=== PATIENT | male | born 1950 | race Caucasian/White ===

== ENCOUNTER 2024-12-15 14:14 | Emergency (ER) | payer MEDICARE, OTHER, SELFPAY ==
--- NOTE | 2024-12-15 14:23 | DI.CT.S_ITS ---
PROCEDURE: CT HEAD/BRAIN WO CON INDICATIONS: Fall/pain TECHNIQUE: Noncontrast 4.5 mm thick angled axial sections acquired from the foramen magnum to the vertex, with coronal and sagittal reformats. For radiation dose reduction, the following was used: automated exposure control, adjustment of mA and/or kV according to patient size. COMPARISON: None. FINDINGS: Image quality: Diagnostic. CSF spaces: Basal cisterns are patent. The ventricles are symmetric in size and shape. Brain: Hyperdensities are noted along right cerebral sulci extending to sylvian fissure and central sulcus. Hyperdensity is also seen extending to right-side of suprasellar cistern. No definite intraparenchymal hemorrhage. There is cerebral volume loss, with resultant ventricular and sulcal prominence. There are periventricular and deep white matter chronic small vessel ischemic changes. There is intracranial internal carotid artery atherosclerosis. Skull and face: Scalp swelling and edema along left frontal parietal region is seen. No acute skull fracture. Sinuses: Visualized sinuses and mastoids are clear. IMPRESSION: 1. Acute subarachnoid hemorrhage along right cerebral hemisphere as above. 2. Left scalp swelling and hematoma without acute skull fracture. 3. No acute intraparenchymal hemorrhage. No midline shift or significant mass effect. Dictated by: Brendon Young M.D. on 12/15/2024 at 15:05 Approved by: Brendon Young M.D. on 12/15/2024 at 15:11
--- NOTE | 2024-12-15 14:23 | DI.CT.S_ITS ---
PROCEDURE: CT CERVICAL SPINE WO CON INDICATIONS: Fall/pain TECHNIQUE: Noncontrast 3 mm thick sections acquired from the skull base to the T4 level. Sagittal and coronal reformats were then constructed. For radiation dose reduction, the following was used: automated exposure control, adjustment of mA and/or kV according to patient size. COMPARISON: None. FINDINGS: Image quality: Excellent. Bones: No fractures or dislocations. Loss of disc height, degenerative endplate changes and bilateral uncovertebral hypertrophic changes are noted throughout cervical spine causing mild central canal stenosis, and mild bilateral neural foraminal narrowing . Visualized superior ribs are intact. Soft tissues: Prevertebral soft tissues are normal in thickness. No paravertebral hematomas. No apical pneumothoraces. IMPRESSION: 1. No displaced fracture or traumatic subluxation. 2. Multilevel spondylitic changes throughout cervical spine. Dictated by: Brendon Young M.D. on 12/15/2024 at 15:21 Approved by: Brendon Young M.D. on 12/15/2024 at 15:22
--- NOTE | 2024-12-15 14:23 | DI.RAD.S_ITS ---
PROCEDURE: XR HAND RT MIN 3V INDICATIONS: Fall/pain TECHNIQUE: 3 views of the hand(s) acquired. COMPARISON: None. FINDINGS: Bones: No fractures or dislocations. Osteoarthritic changes are noted throughout right hand and wrist joints most notably at 1st CMC joint. Carpal bones are normally aligned. No suspicious bony lesions. Soft tissues: No suspicious soft tissue calcifications. IMPRESSION: No acute right hand fracture or dislocation. Right hand and wrist joint osteoarthritis. Dictated by: Brendon Young M.D. on 12/15/2024 at 15:04 Approved by: Brendon Young M.D. on 12/15/2024 at 15:05
--- NOTE | 2024-12-15 14:23 | DI.CT.S_ITS ---
PROCEDURE: CT PEL WO CON INDICATIONS: Fall/pain TECHNIQUE: Noncontrast 3 mm axial sections acquired through the bony pelvis, with coronal and sagittal reformatting. COMPARISON: None. FINDINGS: Image quality: Excellent. Bones: Pelvic ring is intact. No acute fracture or dislocation. Moderate bilateral hip joint osteoarthritic changes are seen. No evidence of avascular necrosis of femoral heads. No suspicious intraosseous lesions. Mild degenerative disc disease in visualized lower lumbar spine is seen. Soft tissues: There is no pelvic free fluid or free air. Bladder wall thickness is normal. Mildly enlarged prostate gland with mass effect on floor of urinary bladder. No abnormal bowel wall thickening. No free fluid or free air. No soft tissue mass or drainable fluid collection. No soft tissue or intramuscular hematoma. No abnormal soft tissue calcifications. IMPRESSION: 1. No acute pelvic fracture or dislocation. No evidence of avascular necrosis of femoral head. 2. No gross pelvic soft tissue abnormalities. Dictated by: Brendon Young M.D. on 12/15/2024 at 15:22 Approved by: Brendon Young M.D. on 12/15/2024 at 15:23
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
[2024-12-15 14:28] VITALS: BP 148/82; PULSE 16; RESP 19; TEMP 36.9; O2SAT 100
[2024-12-15 14:34] VITALS: BP 155/78; PULSE 87; RESP 16; TEMP 36.9; O2SAT 98
[2024-12-15] MEDS: TET,DIPH,PERTUSS(ACELL),VAC/PF 0.5 ML SYRINGE IM (14:46)
[2024-12-15] MEDS: ONDANSETRON 4 MG/2 ML INJ IV (15:16)
[2024-12-15] MEDS: MORPHINE 4 MG/ML INJ IV (15:16)
[2024-12-15 15:34] LABS: Add Manual Diff / Slide Review NO; Basophils Absolute Auto 0 /uL (0-100); Basophils Percent Auto 0.4 % (0-2); Eosinophils Absolute Auto 0 /uL (0-450); Eosinophils Percent Auto 0.5 % (2-4); Hematocrit 39.6 % (41-53); Hemoglobin 13.9 g/dL (13.5-17.5); Lymphocytes Absolute Auto 1200 /uL (1100-4500); Lymphocytes Percent Auto 13.1 % (25-40); Mean Corpuscular HGB Conc 35.2 % (30-36); Mean Corpuscular Hemoglobin 30.9 PG (26-34); Mean Corpuscular Volume 87.8 fL (80-100); Monocytes Absolute Auto 500 /uL (0-900); Monocytes Percent Auto 5.7 % (3-14); Neutrophils Absolute Auto 7200 /uL (1500-7000); Neutrophils Percent Auto 80.3 % (50-75); Platelet Count 224 X10^3/uL (150-400); Red Blood Cell Count 4.51 X10^6/uL (4.5-5.9); Red Cell Distribution Width 14.1 % (11.6-14.8); White Blood Cell Count 8.9 X10^3/uL (4.5-11.0)
[2024-12-15 15:44] LABS: PTT Partial Thromboplastin Tim 29 SECONDS (25.1-36.5)
[2024-12-15 15:46] LABS: Alanine Aminotransferase 27 IU/L (<50); Albumin 4.4 g/dL (3.5-5.0); Albumin Globulin Ratio 1.7 (1.0-2.8); Alkaline Phosphatase 63 U/L (38-126); Aspartate Aminotransferase 34 IU/L (17-59); BUN Creatinine Ratio 11.5 (6-22); Bilirubin Total 0.7 mg/dL (0.2-1.3); Blood Urea Nitrogen 13 mg/dL (9-20); Carbon Dioxide 18 mmol/L (22-32); Chloride 108 mmol/L (98-107); Estimated Glomerular Filt Rate > 60 mL/min (>60); Globulin 2.6 g/dL (1.7-4.1); Glucose 118 mg/dL (80-110); HEMOLYSIS 20 (0-50); Potassium 4.2 mmol/L (3.4-5.1); Sodium 137 mmol/L (137-145)
[2024-12-15 15:55] VITALS: PULSE 65; O2SAT 97
[2024-12-15 16:00] VITALS: PULSE 66; O2SAT 96
[2024-12-15 16:04] VITALS: BP 158/78; PULSE 65; O2SAT 98
[2024-12-15 16:08] LABS: INR 1.3 (0.9-1.3); Prothrombin Time 14.5 SECONDS (9.4-12.5)
== END 2024-12-15 16:15 | disposition short-term general hospital (02) ==
PROVIDERS: Emergency Provider Emergency Medicine
DX: S06.6X1A Traumatic subarachnoid hemorrhage with loss of consciousness of 30 minutes or less, initial encounter (principal); S63.601A Unspecified sprain of right thumb, initial encounter; S80.212A Abrasion, left knee, initial encounter; S70.02XA Contusion of left hip, initial encounter; V28.01XA Electric (assisted) bicycle driver injured in noncollision transport accident in nontraffic accident, initial encounter; Y93.55 Activity, bike riding; Z23 Encounter for immunization
CPT/HCPCS: 70450; 72125; 72192; 73130; 80053; 85025; 85610; 85730; 90471; 96374; 96375; 99284; 99285; 90715; J2270; J2405

== ENCOUNTER → 2024-12-26 11:50 | Outpatient (CLI) | payer MEDICARE, OTHER, SELFPAY ==
--- NOTE | 2024-12-26 11:52 | DI.RAD.S_ITS ---
PROCEDURE: XR FEMUR LT MIN 2V INDICATIONS: Pain in left leg TECHNIQUE: 2 views of the femur were acquired. COMPARISON: None. FINDINGS: Bones: There are no osseous abnormalities Joints: The joint spaces are normal in width and alignment without arthritic change. Soft tissues: No soft tissue abnormality. IMPRESSION: Normal left femur Dictated by: Archie Dickey M.D. on 12/27/2024 at 12:23 Approved by: Archie Dickey M.D. on 12/27/2024 at 12:23
--- NOTE | 2024-12-26 11:52 | DI.RAD.S_ITS ---
PROCEDURE: XR HIP W PEL IF DONE LT 2V INDICATIONS: Pain in left leg TECHNIQUE: AP pelvis with lateral view(s) of the left hip(s). COMPARISON: None. FINDINGS: Bones: There are no osseous abnormalities. SI and hip joints: Normal in width and alignment without arthritic change Soft tissues: No soft tissue swelling, calcification or mass. IMPRESSION: Normal pelvis Dictated by: Archie Dickey M.D. on 12/27/2024 at 12:22 Approved by: Archie Dickey M.D. on 12/27/2024 at 12:22
== END ==
PROVIDERS: PCP Family Medicine; Referring Provider Family Medicine; Visit Provider Family Medicine
DX: M79.605 Pain in left leg (principal)
CPT/HCPCS: 73502; 73552